=== PATIENT | female | born 1980 | race Caucasian/White ===

== ENCOUNTER 2017-09-05 12:12 | Emergency (ER) | payer BC ==
[~2017-09-05 12:12] MED LIST: ISOVUE-370 76%-LOCM 1 ML ONE
--- NOTE | 2017-09-05 13:06 | ULT ---
ULTRASOUND ABDOMEN LIMITED: (RIGHT UPPER QUADRANT) HISTORY: A 36-year-old female with right upper quadrant abdominal pain. FINDINGS: The gallbladder has normal wall thickness and has no evidence of gallstones or sludge. The hepatic e chogenicity is normal. The right kidney has normal echogenicity and has no hydronephrosis. The panc reas is obscured by shadowing from bowel gas. There is no biliary dilation. The common duct caliber is 4 mm. IMPRESSION: 1) No pathology identified. 2) Pancreas not visualized. sam [] POS: [facility]
[2017-09-05 14:28] LABS: Bilirubin Negative (Negative); Blood, Urine Negative (Negative); Clarity CLOUDY (Clear); Glucose, Urine (Dipstick) Negative (Negative); Leukocyte Negative (Negative); Nitrite Negative (Negative); Protein, Urine (Dipstick) Negative (Neg-Trace); Specific Gravity, Urine 1.012 (1.002-1.036); Urobilinogen 0.2 mg/dL (0.2-1.0); pH, Urine 6.5 (5.0-9.0)
[2017-09-05 14:32] LABS: Pregnancy Test - Urine (BHCG) Negative (Negative); Pregu Control Background? CLEAR/WHITE (CLR/WHITE); Pregu Control Bar Appear? YES (CONTROL BAR); Specific Gravity 1.012 (1.002-1.036)
--- NOTE | 2017-09-05 16:45 | CT ---
CT ABDOMEN WITH CONTRAST CT PELVIS WITH CONTRAST: DATE: 09/05/17. TIME: 3:56 p.m. HISTORY: A 36-year-old female with epigastric and right upper quadrant abdominal pain. COMPARISON: Noncontrast CT of 04/24/11. TECHNIQUE: IV injection of iodinated contrast media: administered. Oral contrast media: not administered. FINDINGS: Again noted is the dextroscoliosis of the thoracic spine, and compensatory mild levoscoliosis of thor acolumbar junction. Lung bases are grossly clear. Bilateral breast implants. There is a 4 x 3 x 2 mm calculus at the medial aspect of the left renal lower pole, which was present previously. There i s now a new 5 x 4 x 4 mm calculus in another left renal lower pole calyx, located anterior and latera l to the first one mentioned above. No calculus is identified in the contralateral right kidney. Bi lateral nephrograms are symmetrical, with no perfusion defects. No hydroureteronephrosis. Normal ur inary bladder. Normal appendix, abdominal aorta, adrenals, pancreas, liver, and spleen. No small ewelina wel dilation. Minimal amount of free fluid in the posterior, dependent portion of the pelvic cavity, probably physiologic in a female of menstruating age, and similar to the previous CT. No signs of a cute colonic diverticulitis. There is a 1.5 cm right adnexal small cyst. Nondistended gallbladder v isualized. No pneumoperitoneum. IMPRESSION: 1. Small 1.5 cm right adnexal cyst in the pelvis. 2. Mild nephrolithiasis (2 small calculi in left kidney), without obstructive uropathy. 3. S-shaped scoliosis. BAKARI Ramos POS: [facility]
[2017-09-05] MEDS ORDERED: Morphine 4 MG/ML VIAL ONE (17:23)
== END 2017-09-05 17:49 | disposition home or self-care (01) ==
LOC: ERS 12:12
DX: R10.11 Right upper quadrant pain (principal); F90.9 Attention-deficit hyperactivity disorder, unspecified type; Z79.899 Other long term (current) drug therapy
CPT/HCPCS: 74177; 76705; 81003; 81025; 96361; 96374; J2270